=== PATIENT | male | born 1980 | race Caucasian/White ===

== ENCOUNTER 2018-02-20 06:29 | Day surgery (SDC) | payer BC, SELFPAY ==
[2018-02-03 13:21] VITALS: BMI 45.8
[2018-02-20] VITALS (16 sets, daily range): BP systolic 135–170; BP diastolic 81–114; PULSE 63–82; RESP 14–20; TEMP 36.2–37; O2SAT 92–100; BMI 44.4
[2018-02-20] MEDS: LACTATED RINGERS 1,000 ML 42 ML IV ×2 (07:15→11:03)
--- NOTE | 2018-02-20 07:44 | PM.PREOP ---
Pre-operative Note Interval Note Pre-op Check: Yes History & Physical Reviewed by Physician and Yes Exam Performed Changes: No
[2018-02-20] MEDS: CEFAZOLIN 2 GM/100 ML FROZ.PIGGY IV (08:18)
--- NOTE | 2018-02-20 08:25 | SUR.PREOP ---
Block start time [] . Monitoring initiated and maintained throughout procedure. Oxygen and medications given per anesthesiologist instructions. Patient remained stable throughout procedure, no adverse reactions noted. Block end time [].
--- NOTE | 2018-02-20 08:26 | SUR.PREOP ---
block procedure from [id number]
--- NOTE | 2018-02-20 08:54 | SUR.OPER ---
Supine on padded OR bed, head on pillow, arms secured on padded arm boards at <90 degrees abduction, legs uncrossed, safety belt at waist,.Lateral retractable arthroscopy brace on operative leg side ( right) . Hip salesperson handbags brace on non operative side . Right leg drapped free
[2018-02-20] MEDS: BUPIVACAINE 0.5% (PF) VIAL 30 ML INJ (09:19)
[2018-02-20] MEDS: HYDROMORPHONE 2 MG INJ 0.5 MG IV ×4 (11:00→11:30)
--- NOTE | 2018-02-20 11:12 | P.OP_ITS ---
Operative Date/Time/Diagnoses Date of procedure: 02/20/18 Time of procedure: 10:30 Pre-op diagnosis: 1. Intra-articular lateral femoral condyle fracture, right knee 2. Anterior cruciate ligament rupture Post-op diagnosis: same Procedure & Clinicians Procedure: 1. Open reduction internal fixation of articular fracture of the lateral femoral condyle 2. Arthroscopic anterior cruciate ligament reconstruction with hamstring autograft 3. Arthroscopic chondroplasty of the patella Same procedure as scheduled: Yes Indications: The patient is a 37-year-old gentleman who injured his knee while dancing. His MRI shows an ACL rupture and also a large intra-articular loose body with a likely lateral femoral condyle donor site. He has agreed to anterior cruciate ligament reconstruction and fixation of the fracture after discussion the risks benefits alternatives. Risks discussed included but were not limited to: Failure to relieve pain, failure to improve function, stiffness , infection, nerve damage, deep venous thrombosis, pulmonary embolism, stroke, myocardial infarction, permanent paralysis and . Surgeon: Dagoberto Ennis [employer] Makeup Artist: Hannah Rosario Click Yes if Unassisted: No Anesthesia Type: General and Peripheral nerve block Operative Notes Findings: 1. Normal suprapatellar pouch 2. Grade 4 lesion to the medial facet of the patella with no repairable loose fragment. The loose cartilage was debrided 3. Normal medial and lateral gutters 4. Medial compartment notable for minimal fraying of the femoral cartilage, intact meniscus and minimal fraying of the tibial cartilage 5. Intercondylar notch notable for complete rupture of the anterior cruciate ligament with partial healing to the posterior cruciate ligament and a large loose body approximately 2.5 cm in diameter which appeared to be from the lateral femoral condyle. 6. Lateral compartment notable for the donor site for the above-mentioned loose body on the femur. There was no meniscal tear. Tibial cartilage was intact although slightly frayed. Closure Type: primary Specimen(s): none sent Implants & Drains: Implants used in this procedure were manufactured by the [employer] and included a tight rope ACL femoral fixation, a graft bolt tibial fixation and 3 osteochondral darts to fix the lateral femoral condyle. Applied: implant(s) Estimated Blood Loss (mL): 25 Blood products transfused: none Tourniquet time (min): 76 Procedure in detail: The patient was seen in the preoperative area were identified the right knee as the operative site this was marked with my initials. He received preoperative antibiotics and underwent a femoral nerve block. He was taken to the operating room and placed on the operating room table in a supine position where he underwent induction with general anesthetic. Following the onset of satisfactory general anesthesia his knees were examined under anesthesia which confirmed ACL laxity but relative preservation of the remaining ligaments. A tourniquet was placed about his proximal right thigh. His right leg was prepared from the toes to the tourniquet with ChloraPrep and draped through sterile drapes. A superomedial portal was created for the pump cannula. A lateral portal was created for the arthroscope and diagnostic arthroscopy ensued with result given above. During diagnostic arthroscopy and medial portal was created for the probe and other tools. Following the diagnostic arthroscopy I elected to ?store ? the loose fragment in the lateral gutter and proceed with an arthroscopic ACL reconstruction. The arthroscopic equipment was removed from the knee, the leg was elevated and exsanguinated with an Esmarch bandage and the gracilis and semitendinosus tendons were harvested through a 1 in incision overlying the proximal tibia in the usual fashion. These were taken to the back table for preparation by my operator assistant i cementing. I returned the arthroscope into the knee and completed debridement of the ACL remnant. The [employer] ?flip cutter? was used to drill a femoral socket and place a passing suture in the center of the femoral insertion of the ACL. The tibial tunnel was then drilled in the center of the tibial insertion of the ACL. The suture was retrieved through the tibial tunnel and used to deliver the graft into the knee. This was drawn into the femoral tunnel, the anchoring device was deployed and traction applied to the graft to ensure that there had been good fixation. The graft was then advanced into the socket using the tight rope mechanism. A tension scale was placed on the graft and the knee placed through 20 cycles of flexion and extension with 20 lb of tension on the graft. The graft was then fixed in full extension with 15 lb tension on the graft. This was accomplished with the graft bolt sheath and screw. This gave excellent fixation of the graft and this limited ACL laxity. We then turned our attention to fixation of the lateral femoral condyle fragment. The lateral portal was extended superiorly and inferiorly for total length of incision of about 10 cm. This was carried into the knee through a lateral parapatellar arthrotomy. The loose fragment was removed from the lateral gutter and cleaned of fibrous tissue on the bony surface. The defect of the lateral femoral condyle was likewise cleaned with a curette. The fragment was carefully placed into the donor site and the rotation confirmed. This was provisionally held in place with a 0.54 inch K-wire. Three [employer] osteochondral darts were then placed in a triangular fashion around the fragment to provide final fixation. K-wire was then removed. The knee was placed through a range of motion and the fragment appeared to be well fixed and the motion was smooth with no catching. The wound was then irrigated. The arthrotomy was closed with interrupted number 1 Tycron followed by 3 0 Vicryl in a subcutaneous layer and a running 3 0 V lock suture for skin. The tibial wound for the ACL was closed with 3 0 Vicryl to reapproximate the sartorius fascia followed by 3 0 Vicryl in the subcutaneous tissue and a 4 0 Maxon suture for skin. The portals were also closed with 4 0 Maxon. Dressings of an Aquacel Ag dressing on the arthrotomy wound, 4x4s and cast padding followed by an Cruz wrap were applied. The patient was then placed in his brace and taken to recovery room in good condition having tolerated the procedure well. Complications: none Condition: stable Disposition: PACU Plan for aftercare: The patient will be maintained nonweightbearing for 6 weeks. He will be allowed full range of motion of the knee. He will be maintained in the hospital likely overnight will probably be discharged tomorrow morning.
[2018-02-20] MEDS: OXYCODONE/ACETAMINOPHEN 5/325 TABLET 1 TAB PO ×2 (11:33→11:52)
[2018-02-20] MEDS: fentaNYL 100 MCG/2 ML INJ 50 MCG IV ×2 (11:40→11:51)
--- NOTE | 2018-02-20 12:07 | SUR.PHASEI ---
pt medicated with fentanyl and dilaudid and percocet, pt relaxed and restful between care. when awaked c/o pain. [id number] even and nonlabored. report called to quiana, 02 weaned off, transfered up to room.
--- NOTE | 2018-02-20 12:20 | SUR.PHASEI ---
pt brought to room with cpap, crutches, and valuble pack. pt left in stable condition.
[2018-02-20] MEDS: LACTATED RINGERS 1,000 ML 125 ML IV (13:02)
--- NOTE | 2018-02-20 14:12 | PT.IIE ---
Current Diagnoses Loose body in knee, right knee (02/20/18) Displaced fracture of lateral condyle of right femur, initial encounter for closed fracture (02/20/18) Sprain of medial collateral ligament of right knee, initial encounter (02/20/18) Sprain of anterior cruciate ligament of right knee, initial encounter (02/20/18) Surgery Performed Operation Date: 02/20/18 07:45 Actual Procedures p ORIF lateral chondial Fracture with patellar chondroplasty right knee(Right) - Dagoberto Ennis MD s Arthroscopic ACL Reconstruction with hamstring autograft(Right) - Dagoberto Ennis MD Surgical History (Last Reviewed 02/20/18 @ 16:15 by Pardeep Esparza PT, [place]) Anesthesia (Resolved) History of tonsillectomy (Resolved) Medical History (Last Reviewed 02/20/18 @ 16:15 by Pardeep Esparza PT, [place]) Marijuana use (Acute) HTN (hypertension) (Acute) Sleep apnea (Acute) ADHD (attention deficit hyperactivity disorder) (Chronic 1980) Asthma (Chronic 1992) Chronic headaches (Chronic) Depression (Chronic) Eczema (Chronic) Hayfever (Chronic) Migraines (Chronic) Plantar warts (Chronic) Physical Therapy Inpatient Evaluation/Re-Eval M1 PT/OT-IP Prior Functional Status Start: 02/20/18 16:27 Freq: NEEDED Status: Active Protocol: Document 02/20/18 14:12 MDD (Rec: 02/20/18 16:42 MDD [id number]) Medical Review Prior Functional Status Medical History Reviewed Yes Communication normal Mobility and Gait Prior independent with no AD. Has been using crutches NWB for 4 weeks. Activities of Daily Living and IADL's independent Social History Household Members none Living Arrangements House Number of Floors (Floors) One Floor Number of Stairs To Enter/Railing? No steps to enter. One step from living room to bathroom with no railings. Home Environment Standard Height Toilet Walk in Shower Built-In Shower Seat Home Equipment Crutches Employment Status Sales Warehouse Driver Employed Additional Social History Comment Pt works in Sales, has been able to maintain the deskwork, but won't be able to return fully until able to ambulate normally. Although he lives alone, he has a friend that will stay with him overnight. M2 PT-IP Current Condition Start: 02/20/18 16:27 Freq: NEEDED Status: Active Protocol: Document 02/20/18 14:12 MDD (Rec: 02/20/18 16:42 [facility] [id number]) Physical Therapy Current Condition Current Condition Evaluation Date 02/20/18 Treatment Diagnosis s/p R ACLR and Femur ORIF Onset Date 02/20/18 Precautions Brace post-operative knee ranger Other Precautions NWB R LE for 6 weeks. Per post-operative note, pt is allowed full ROM of R knee. Weight Bearing Status Weight Bearing Status Non-Weight Bearing M3 PT-IP Subjective Start: 02/20/18 16:27 Freq: NEEDED Status: Active Protocol: Document 02/20/18 14:12 MDD (Rec: 02/20/18 16:42 [facility] [id number]) Subjective Physical Therapy Visit Type Type Initial Evaluation Visit Start Time 13:50 Visit Stop Time 14:12 Total Visit Minutes 22 Notes BP in supine 158/88 mm Hg BP sittin/115 mm Hg BP after activity: 170/100 mm Hg Number of WEAPONS DESIGNER Visits 0 Physical Therapy Visit Comments Patient Comments Pt feels confident in his ability to safely ambulate NWB with crutches. Therapy Pain Assessment Pain When Pain Assessed At Rest Pain Present Pain Present Pain Reported Location Rt Knee Intensity 8 Scale Used Numeric (1 - 10) Description Aching Pain Management Techniques Apply Cold Timing of Activity with Medications M4 PT-IP Mobility and Gait Start: 02/20/18 16:27 Freq: NEEDED Status: Active Protocol: Document 02/20/18 14:12 MDD (Rec: 02/20/18 16:42 [facility] [id number]) PT-Bed Mobility Assessment Rolling Level of Assist Independent Supine to Sit Supine to Sit Independent Sit to Supine Sit to Supine Independent Scooting Scooting to Edge of Bed Independent Scooting Up and Down in Bed Independent PT-Transfer Assessment Sit to and From Stand Sit to and from Stand Independent Equipment Transfer Assistive Device Gait Belt Axillary Crutches Orthotic/Prosthetic Devices or Brace: Yes Transfer Ability Level of Assist Independent Gait Assessment Gait Gait Assistance Required: Independent Distance (Feet) (feet) 15 Able to Maintain Weight Bearing Status Yes During Gait Assistive Devices Assistive Device Gait Belt Axillary Crutches Gait Deviations General Gait Pattern Within Normal Limits Comments Gait Comments Pt demonstrates safety with crutches and is able to maintain NWB R LE. PT-Balance Assessment Sitting Balance and Reactions Static Sitting Balance Ability Normal Dynamic Sitting Balance Ability Normal Standing Balance and Reactions Static Standing Balance Ability Normal Dynamic Standing Balance Ability Normal M5 PT-IP Objective Assessments Start: 02/20/18 16:27 Freq: NEEDED Status: Active Protocol: Document 02/20/18 14:12 MDD (Rec: 02/20/18 16:42 MDD [id number]) Orientation Orientation/Cognition Level of Alertness Alert Orientation Name Age Birthday Month Date Year Day of Week Place Situation Language Function Ability No Deficits Noted Safety Awareness Understands Safety Issues Memory Description No Deficits Noted Gross Range of Motion Lower Extremity ROM Assessment Within Functional Limits Strength Lower Extremity Strength Assessment Within Functional Limits M6 PT-IP Treatment Start: 02/20/18 16:27 Freq: NEEDED Status: Active Protocol: Document 02/20/18 14:12 MDD (Rec: 02/20/18 16:42 MDD [id number]) Physical Therapy Treatment Education Education Provided Precautions Weight Bearing Status Safety M7 PT-IP Assessment and Plan Start: 02/20/18 16:27 Freq: NEEDED Status: Active Protocol: Document 02/20/18 14:12 MDD (Rec: 02/20/18 16:42 MDD [id number]) PT Summary Assessment and Plan Potential Rehabilitation Potential Excellent Status of Condition at Evaluation Evolving Summary Impairments Pain Progress Towards Goals Safe For Discharge Goals Met Assessment Summary Pt demonstrates independence with bed mobility and transfers. Is safe with ambulation maintaining NWB on R LE. Pt declined stair training today, reporting confidence with one step at home. Considered safe to d/c when medically appropriate. Goals Bed Mobility Goal Independent Transfer Goal Independent Gait Goal Independent Crutches Gait Distance 15 Other Goals ascend/descend one step with axillary crutches maintaining NWB Days to Meet Goals 1 Frequency of Treatment Frequency Of Treatment Discharge Treatment Plan Physical Therapy Treatment Plan Therapeutic Exercise Discharge Recommendations PT Discharge Recommendations Home Outpatient PT
--- NOTE | 2018-02-20 14:54 | PC.NURSE ---
02/20 1454: pt alert and oriented x4, calm and cooperative, anxious to discharge home. Denies sensation change to right lower extremity, circulation observed to be intact. Sleeping in between care, easy to awaken. Pain stated to be at 02/07, was just medicated by PACU, continue to evaluate. Up with physical therapy who stated that [place] transferred and ambulated well with crutches. Left note with Dr Ennis of pts intent to discharge. Blood pressure frequently elevated and very clammy. Otherwise 98-99% on RA and afebrile.
[2018-02-20] MEDS: ACETAMINOPHEN 325 MG TABLET 975 MG PO (15:07)
--- NOTE | 2018-02-20 15:48 | PM.PNPO.1 ---
Subjective Date Patient Seen: 02/20/18 Time Patient Seen: 15:27 Interval history: Patient seen bedside s/p right arthroscopic ACL repair with ORIF of lateral condyle. Doing well, block has worn off and patient has full ROM of the ankle. Denies chest pain, SOB, and calf pain. Exam Vital Signs (past 8 hours): - 02/20/18 10:51 02/20/18 10:56 02/20/18 11:00 Temperature 97.2 F L 97.2 F L Pulse Rate 80 82 Respiratory Rate 18 18 Blood Pressure 142/93 H 145/91 H Pulse Oximetry 96 96 02/20/18 11:01 02/20/18 11:06 02/20/18 11:11 Temperature Pulse Rate 77 73 71 Respiratory Rate 15 14 16 Blood Pressure 142/99 H 135/92 H 140/96 H Pulse Oximetry 94 92 97 02/20/18 11:16 02/20/18 11:30 02/20/18 11:46 Temperature Pulse Rate 68 70 79 Respiratory Rate 16 16 15 Blood Pressure 137/91 H 154/101 H 141/89 H Pulse Oximetry 99 100 95 02/20/18 12:25 02/20/18 12:34 02/20/18 13:00 Temperature 98.0 F 98.3 F Pulse Rate 78 73 70 Respiratory Rate 16 16 16 Blood Pressure 160/95 H 160/95 H 170/114 H Pulse Oximetry 99 99 95 02/20/18 13:25 02/20/18 13:40 02/20/18 14:42 Temperature 98.3 F 97.7 F 97.7 F Pulse Rate 63 68 63 Respiratory Rate 20 18 18 Blood Pressure 146/81 H 158/88 H 160/99 H Pulse Oximetry 94 96 95 Oxygen Delivery Method Room Air Oxygen Flow Rate 2 Narrative Exam Narrative: WDWN NAD A&Ox3. RLE dressing is CDI, brace is in place, ROM of the foot/ankle is intact. Calf is soft and compressible, RLE is NVI with cap refill <2 sec. Assessment & Plan Post-op Postoperative Procedures Operation Date: 02/20/18 07:45 Actual Procedures Side Surgeon p ORIF lateral chondial Fracture with patellar chondroplasty right knee Right Dagoberto Ennis MD s Arthroscopic ACL Reconstruction with hamstring autograft Right Dagoberto Ennis MD Patient is able to go home with aspirin 81 mg BID for VTE prophylaxis as well as oxycodone for pain control. Patient will be NWB for 6 weeks on the operative side. He should wear the brace while ambulating. Follow up in the office in 2 weeks' time at his previously scheduled appointment. All questions answered at the time of the exam. Quality VTE Deep Vein Thrombosis/Pulmonary Embolism Present on Admission: No
[2018-02-20] MEDS: OXYCODONE IR 5 MG TABLET PO (16:46)
== END 2018-02-20 16:49 | disposition home or self-care (01) ==
LOC: OR 06:30 → AC 12:21
PROVIDERS: PCP Family Medicine; Visit Provider Orthopaedic Surgery
PROC: (CPT 27514; principal; 2018-02-20 07:45)
PROC: (CPT 29888; 2018-02-20 07:45)
DX: S72.421A Displaced fracture of lateral condyle of right femur, initial encounter for closed fracture (principal); S83.411A Sprain of medial collateral ligament of right knee, initial encounter; S83.511A Sprain of anterior cruciate ligament of right knee, initial encounter; G47.33 Obstructive sleep apnea (adult) (pediatric); I10 Essential (primary) hypertension; J45.909 Unspecified asthma, uncomplicated; W01.0XXA Fall on same level from slipping, tripping and stumbling without subsequent striking against object, initial encounter; Y93.41 Activity, dancing; G89.18 Other acute postprocedural pain
CPT/HCPCS: 27514; 29888; 64450; 97161; J0690; J1100; J1170; J2250; J2405; J2704; J2795; J3010